=== PATIENT | male | born 1940 | race Caucasian/White ===

== ENCOUNTER 2016-04-12 10:58 | Observation (INO) | payer MEDICARE, BC ==
[2016-04-12] MEDS ORDERED: HOME MEDICATION LIST NEEDED 1 EA EACH MC ONE (11:08)
[2016-04-12] MEDS ORDERED: ACETAMINOPHEN 325 MG TABLET PO PRN (11:08)
[2016-04-12] MEDS ORDERED: DEXTROSE 50% WATER 25 GM/50 ML SYR IV PRN (11:12)
[2016-04-12] MEDS ORDERED: O2 HUMIDIFIER 650 ML BOTTLE INHALATION ONE (11:38)
[2016-04-12] MEDS: INSULIN LISPRO 100 UNIT/ML ML SUBCUT SCH ×3 (11:55→21:03)
[2016-04-12] MEDS ORDERED: NORMAL SALINE 1,000 ML IV SCH (12:00)
[2016-04-12] MEDS ORDERED: GUAIFENESIN ER 600 MG TABLET PO SCH (12:00)
[2016-04-12 12:27] LABS: BLOOD UREA NITROGEN 29 mg/dL (9-20); CALCIUM 8.1 mg/dL (8.4-10.2); CHLORIDE 105 mmol/L (98-107); CREATININE 1.2 mg/dL (0.7-1.3); EST GLOMERULAR FILTRATION RATE > 60 mL/min; GLUCOSE 134 mg/dL (70-100); POTASSIUM 4.6 mmol/L (3.5-5.1); SODIUM 134 mmol/L (137-145)
--- NOTE | 2016-04-12 12:32 | RADIOLOGY REPORT ---
HISTORY: Cough. COMPARISON: None available. FINDINGS: 2 views of the chest obtained. There is a small vague opacity in the mid right lung posteriorly that may represent confluence of sha dows. Otherwise the lungs are clear. No effusion or pneumothorax. Cardiac silhouette is within normal limits for size and the trachea is midline. No acute bony injury. IMPRESSION: 1. Small vague opacity mid right lung. Recommend follow-up PA and lateral chest films in 4-6 weeks. Final Electronic Signature: This report was electronically signed by Jorge Reynoso MD on 04/12/2016 12:3 0 PM. sross /
[2016-04-12 12:35] LABS: HEMATOCRIT 26.6 % (42.0-54.0); HEMOGLOBIN 8.9 g/dL (14.0-18.0); MEAN CELL VOLUME 96.6 fL (80.0-100.0); MEAN CORPUS. HGB CONCENTRATION 33.5 g/dL (32.0-36.0); MEAN CORPUSCULAR HEMOGLOBIN 32.3 pg (29.0-35.0); MEAN PLATELET VOLUME 7.4 fL (7.4-10.4); PLATELET COUNT 297 X 10^3uL (130-440); RED BLOOD COUNT 2.76 X 10^6uL (4.20-6.10); RED CELL DISTRIBUTION WIDTH 14.9 % (11.5-14.5); WHITE BLOOD COUNT 5.3 X 10^3uL (3.9-10.7)
[2016-04-12] MEDS: AZITHROMYCIN 250 MG TABLET PO ONE ×2 (12:49→13:55)
[2016-04-12] MEDS: CEFTRIAXONE SODIUM 1,000 MG in NORMAL SALINE MINI-BAG+ 100 ML IV SCH ×2 (12:50→21:39)
[2016-04-12 12:56] LABS: BAND% (Manual) 26 % (0.0-1.0); EOSINOPHIL % (Manual) 8 % (0.0-6.0); LYMPHOCYTE % (Manual) 5 % (20.0-40.0); MONOCYTE % (Manual) 7 % (2.0-10.0); NEUTROPHIL % (Manual) 54 % (54.0-75.0); PLATELET ESTIMATE ADEQUATE
--- NOTE | 2016-04-12 15:05 | HISTORY & PHYSICAL ---
CHIEF COMPLAINT: Cough and fevers. HISTORY OF PRESENT ILLNESS: The patient is a 76-year-old male. Underlying diabetes. Recently diagnosed with multiple myeloma, and he has been started on Revlimid therapy for this. He was doing fairly well clinically until about 2 days ago at which point he started to develop cough. Yesterday, illness became much more severe with more severe cough with sputum production. In association with this, he began to have fevers and chills with a documented temperature to 100 with a fair amount of shivering and shaking throughout the course of the day. In association with this, he has had a little bit of lightheadedness but no focal neurologic changes. No significant headache. He has had significant myalgias which are diffuse. He denies any chest pain or palpitations. No orthopnea, PND, lower extremity edema. Appetite has been poor but he denies any abdominal pain, nausea, vomiting. No diarrhea or constipation. He does have cough as above which is productive of sputum. No wheezing or shortness of breath. With regard to his diabetes, he has not been checking his fingerstick blood sugars. His appetite has been poor and his oral intake has been low. He has generalized weakness. He was seen by me this morning in the clinic urgently. He as found to be hemodynamically stable with borderline hypoxemia. No clear evidence of a focal process on his chest examination. However, considering his productive cough, fevers, rigors, hypoxemia, immunocompromised, he requires more aggressive treatment with hospitalization and he is willing to be admitted for such. PAST MEDICAL HISTORY 1. Actinic keratoses. 2. Aortic insufficiency which is mild, diagnosed in 2004. 3. History of BPV. 4. Bradycardia which is asymptomatic. 5. Chronic kidney disease stage 3. 6. Colon polyps. 7. Diabetes mellitus type 2 with underlying renal disease and peripheral vascular disease. 8. Erectile dysfunction. 9. Hemorrhoids. 10. Hypercholesterolemia. 11. Hyperkalemia in the setting of renal insufficiency and diabetes. 12. Hypertension. 13. Mild mitral regurgitation. 14. Multiple myeloma not yet having achieved remission and diagnosed in March of 2016. 15. Onychomycosis. 16. Perennial allergic rhinitis. 17. History of posterior vitreous attachment bilaterally. 18. Elevated PSA. 19. Sciatica. 20. Seborrheic keratosis. 21. Tinea pedis. PAST SURGICAL HISTORY 1.Cataract surgery in 2015. 2. Tonsillectomy as a child. ALLERGIES: Tetanus vaccine resulting in a local reaction. MEDICATIONS Acetaminophen 500 mg one to two p.o. t.i.d. p.r.n. Allopurinol 300 mg p.o. daily for 14 days. Aspirin 81 mg p.o. daily. Atorvastatin 10 mg p.o. at bedtime. Dexamethasone 20 mg weekly in association with his Revlimid. Lisinopril 20 mg p.o. daily. Metformin 1000 mg p.o. b.i.d. Nasacort 2 sprays to each side daily. Revlimid 25 mg p.o. daily for 21 days with a 7-day break. Vitamin C 1000 mg daily. Zyrtec 10 mg p.o. daily. SOCIAL HISTORY: Rare alcohol. No tobacco. 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 FAMILY HISTORY: Noncontributory. REVIEW OF SYSTEMS: Pertinent positives and negatives as above. Remainder are negative. PHYSICAL EXAMINATION VITAL SIGNS: Show a temperature of 98.3, with a blood pressure 140/56, pulse 84 , respirations 20. He is 89% on room air. His weight is 183 pounds. GENERAL: A well-developed male. Appears tired but in no significant respiratory distress. No use of accessory muscles. Shivering. Alert and interactive and appropriate. HEENT: Normocephalic/atraumatic. Sinuses are nontender. Pupils are equal, round and reactive to light. Extraocular muscles appear intact. Full range of motion. Oropharynx shows dry mucous membranes but is otherwise clear. NECK: Supple without lymphadenopathy or masses. No thyromegaly or nodules. CHEST: Mildly decreased breath sounds throughout. I do not hear any rales, rhonchi or wheezes. CARDIAC: Regular rate and rhythm, normal S1, S2. There is a soft 1/6 holosystolic murmur best heart at the apex. Could not feel a PMI. Has no JVD at 90 degrees. No lower extremity edema. ABDOMEN: Positive bowel sounds. Soft, nontender, nondistended. No hepatosplenomegaly. No masses. No rebound or rigidity. BACK: No costovertebral angle tenderness or spinous process tenderness. EXTREMITIES: No cyanosis or clubbing. SKIN: No rashes. NEUROLOGIC: The patient alert and oriented times 3. Light touch was not retested. He is moving all 4 extremities equally. Moving carefully with his gait. LABORATORY STUDIES: Ordered and pending include blood cultures, influenza swab , CBC, CMP, lactate, urinalysis. CHEST X-RAY: Ordered and pending. ASSESSMENT AND PLAN 1. Pneumonia: Bacterial, complicated. At this point and time, the patient is presenting with a clinical scenario which is consistent with pneumonia in an immunocompromised state. Further testing is ordered and pending as above. At this point, considering he is immunocompromised, shaking which is suggestive of bacteremia, and borderline hypoxemia, I believe he requires hospitalization and more aggressive management. That being said, he does not appear septic at this time, and I believe we can manage him here at this facility. Testing has been ordered as above. Will initiate treatment with ceftriaxone initially at 1 g q.12h considering fears of bacteremia. Concurrent azithromycin. Depending on influenza testing, may need Tamiflu but will hold off for now. IV fluid resuscitation. I do not hear any evidence of airway inflammation/wheezing. Based upon this, no indication for additional steroids and will hold off on bronchodilators unless he becomes more symptomatic from a shortness of breath or wheezing standpoint. At this point in time, I will plan to hold his Revlimid and his steroids temporarily until infection is better managed. 2. Multiple myeloma: New diagnosis. Now with immunocompromised as above. 3. Diabetes mellitus type 2: Depending upon his labs, will plan to continue metformin. Will follow fingerstick blood sugars. Holding off on further steroids as above. 4. Hypertension: Blood pressure appears to be reasonably controlled. Will continue his usual medications. 5. Hypercholesterolemia: Again, will continue on his usual medications. 6. Core status: The patient is full core/full tube. 7. DVT prophylaxis: Lovenox. 8. Vaccine status: The patients most recent flu vaccine was in 11/2015. Most recent pneumonia vaccine was Prevnar in 02/2014. He is not up-to-date on tetanus vaccine based upon severe prior reaction. [facility]
[2016-04-12] MEDS: FLUTICASONE NASAL 120 SPRAY BTL NASAL SCH ×2 (19:14→19:17)
[2016-04-12] MEDS: FEXOFENADINE HCL 180 MG TABLET PO SCH (19:14)
[2016-04-12] MEDS: ATORVASTATIN CALCIUM 10 MG TABLET PO SCH (20:40)
[2016-04-12] MEDS: metFORMIN 500 MG TABLET PO SCH (20:41)
[2016-04-12] MEDS: GUAIFENESIN ER 600 MG TABLET PO SCH (21:39)
[2016-04-13 07:08] LABS: BASOPHILS 0.6 % (0.0-2.0); EOSINOPHILS# 0.5 X 10^3uL (0.0-0.4); HEMATOCRIT 25.7 % (42.0-54.0); HEMOGLOBIN 8.4 g/dL (14.0-18.0); LYMPHOCYTES 14.2 % (20.0-40.0); LYMPHOCYTES# 0.6 X 10^3uL (0.8-3.8); MEAN CELL VOLUME 97.3 fL (80.0-100.0); MEAN CORPUS. HGB CONCENTRATION 32.7 g/dL (32.0-36.0); MEAN CORPUSCULAR HEMOGLOBIN 31.8 pg (29.0-35.0); MEAN PLATELET VOLUME 7.2 fL (7.4-10.4); MONOCYTES 9.1 % (2.0-10.0); MONOCYTES# 0.4 X 10^3uL (0.2-1.0); NEUTROPHILS 65.1 % (54.0-75.0); NEUTROPHILS# 3.1 X 10^3uL (2.6-6.7); PLATELET COUNT 253 X 10^3uL (130-440); RED BLOOD COUNT 2.64 X 10^6uL (4.20-6.10); RED CELL DISTRIBUTION WIDTH 14.8 % (11.5-14.5); WHITE BLOOD COUNT 4.6 X 10^3uL (3.9-10.7)
[2016-04-13 07:18] LABS: BLOOD UREA NITROGEN 26 mg/dL (9-20); CALCIUM 7.8 mg/dL (8.4-10.2); CHLORIDE 107 mmol/L (98-107); CREATININE 1.2 mg/dL (0.7-1.3); EST GLOMERULAR FILTRATION RATE > 60 mL/min; GLUCOSE 98 mg/dL (70-100); POTASSIUM 4.8 mmol/L (3.5-5.1); SODIUM 137 mmol/L (137-145)
--- NOTE | 2016-04-13 08:17 | PROGRESS NOTE: IM APSO ---
Assessment and Plan - Date of Encounter Date of Encounter: 04/13/16 (1) Pneumonia Status: Acute Assessment and plan: Gram stain is showing only mixed respiratory abdifatah. Chest xray shows a faint opacity right mid lung, and presentation is consistent with diagnosis. Patient seems to have responded well to medications for community acquired pneumonia, so will continue same while awaiting sputum culture. Current Visit: Yes (2) Anemia Status: Acute Assessment and plan: Patient has underlying multiple myeloma, not yet in remission, undergoing treatment. Hemoglobin is slightly lower today, likely the result of blood draws. He does not feel more short of breath, so will continue to observe for now. Current Visit: Yes (3) Diabetes Status: Acute Assessment and plan: Blood sugars are remaining stable, this morning at 98. Continue current interventions. Current Visit: Yes (4) Hypertension Status: Acute Assessment and plan: Blood pressure remains controlled, continue current interventions. Current Visit: Yes - Time Spent With Patient Total time spent with greater than 50% in coordination of care (as documented) at patient's floor/unit and/or counseling patient: IM: PN Subjective Interval history: Feeling much better, and has not had any shaking chills. Slight cough, no increase in shortness of breath. No diarrhea. Has been afebrile overnight. General: fatigue, no fever, no chills HEENT: no headache Cardiovascular: no chest pain Respiratory: cough, sputum (yellow mucus), SOB, no wheeze Gastrointestinal: no abdominal pain, no diarrhea Genitourinary: no dysuria Musculoskeletal: no pain, no swelling Integumentary: no rashes Neurological: no headache IM: PN Objective Exam - I&O/Vital Signs I&O: Intake & Output 04/12/16 04/13/16 04/13/16 21:59 05:59 13:59 Intake Total 650 2100 Output Total 200 850 Balance 450 1250 Weight 86 kg Intake: IV 400 1800 Right Forearm 400 1800 Oral 250 300 Output: Urine 200 850 Other: Urine Appearance Clear Clear Urine Color Light Tania Yellow Voiding Method Urinal Urinal # Voids 3 # Bowel Movements 0 Vital Signs: Last Vital Signs Temp 36.3 C L 04/13/16 06:45 Pulse 71 04/13/16 06:45 Resp 15 04/13/16 06:45 BP 128/61 04/13/16 06:45 Pulse Ox 97 04/13/16 06:45 Oxygen Flow Rate 1 Oxygen Delivery Method Nasal Cannula - Constitutional General appearance: Present: average body habitus - Head Head exam: Present: normal inspection - Eye Eye exam: Present: EOMI. Absent: conjunctival injection Pupils: Present: PERRL - ENT ENT exam: Present: mucous membranes moist - Neck Neck exam: Present: full ROM, normal inspection - Respiratory Respiratory exam: Present: wheezes (right field, mild). Absent: accessory muscle use - Cardiovascular Cardiovascular exam: Present: RRR, systolic murmur (2/6 RUSB, Mid clavicular and heard throughout the precordium. MSC) - GI/Abdominal GI/Abdominal exam: Present: normal bowel sounds, soft. Absent: tenderness - Extremities Exam Extremities exam: Absent: calf tenderness, edema - Psychiatric Psychiatric exam: Present: normal affect - Lab Labs: Laboratory Last Values WBC 4.6 X 10^3uL (3.9-10.7) 04/13/16 06:15 RBC 2.64 X 10^6uL (4.20-6.10) L 04/13/16 06:15 Hgb 8.4 g/dL (14.0-18.0) L 04/13/16 06:15 Hct 25.7 % (42.0-54.0) L 04/13/16 06:15 MCV 97.3 fL (80.0-100.0) 04/13/16 06:15 MCH 31.8 pg (29.0-35.0) 04/13/16 06:15 MCHC 32.7 g/dL (32.0-36.0) 04/13/16 06:15 RDW 14.8 % (11.5-14.5) H 04/13/16 06:15 Plt Count 253 X 10^3uL (130-440) 04/13/16 06:15 MPV 7.2 fL (7.4-10.4) L 04/13/16 06:15 Total Counted 100 04/12/16 11:08 Neutrophils % 65.1 % (54.0-75.0) 04/13/16 06:15 Neutrophils % (Manual) 54 % (54.0-75.0) 04/12/16 11:08 Band Neuts % (Manual) 26 % (0.0-1.0) H 04/12/16 11:08 Lymphocytes % 14.2 % (20.0-40.0) L 04/13/16 06:15 Lymphocytes % (Manual) 5 % (20.0-40.0) L 04/12/16 11:08 Monocytes % (Manual) 7 % (2.0-10.0) 04/12/16 11:08 Eosinophils % 11.0 % (0.0-6.0) H 04/13/16 06:15 Eosinophils % (Manual) 8 % (0.0-6.0) H 04/12/16 11:08 Basophils % 0.6 % (0.0-2.0) 04/13/16 06:15 Neutrophils # 3.1 X 10^3uL (2.6-6.7) 04/13/16 06:15 Lymphocytes # 0.6 X 10^3uL (0.8-3.8) L 04/13/16 06:15 Monocytes 9.1 % (2.0-10.0) 04/13/16 06:15 Monocytes # 0.4 X 10^3uL (0.2-1.0) 04/13/16 06:15 Eosinophils # 0.5 X 10^3uL (0.0-0.4) H 04/13/16 06:15 Basophils # 0.0 X 10^3uL (0.0-0.1) 04/13/16 06:15 Platelet Estimate Adequate 04/12/16 11:08 Polychromasia 10-19% of cells 04/12/16 11:08 Hypochromic-Microcytic 10-19% of cells 04/12/16 11:08 Anisocytosis 20-39% of cells 04/12/16 11:08 Macrocytosis 20-39% of cells 04/12/16 11:08 Sodium 137 mmol/L (137-145) 04/13/16 06:15 Potassium 4.8 mmol/L (3.5-5.1) 04/13/16 06:15 Chloride 107 mmol/L (98-107) 04/13/16 06:15 Carbon Dioxide 24 mmol/L (22-30) 04/13/16 06:15 BUN 26 mg/dL (9-20) H 04/13/16 06:15 Creatinine 1.2 mg/dL (0.7-1.3) 04/13/16 06:15 GFR Calculation > 60 mL/min 04/13/16 06:15 Glucose 98 mg/dL (70-100) 04/13/16 06:15 Calcium 7.8 mg/dL (8.4-10.2) L 04/13/16 06:15 Quality Questions - VTE Prophylaxis Assessment VTE Present on Admission?: No Patient at risk for venous thromboembolism?: Yes VTE Risk Level: High Risk VTE Medical Contraindication: N/A-VTE Prophylaxis ordered (1) Pneumonia Qualifiers: Pneumonia type: due to unspecified organism Laterality: right Lung location : middle lobe of lung Qualified Code(s): J18.1 - Lobar pneumonia, unspecified organism (2) Anemia Qualifiers: Anemia type: bone marrow failure Bone marrow failure anemia type: other bone marrow failure Qualified Code(s): D61.89 - Other specified aplastic anemias and other bone marrow failure syndromes (3) Diabetes Qualifiers: Diabetes mellitus type: type 2 Diabetes mellitus complication status: with kidney complications Diabetes mellitus complication detail: with chronic kidney disease Chronic kidney disease stage: stage 3 (moderate) (4) Hypertension Qualifiers: Hypertension type: essential hypertension Qualified Code(s): I10 - Essential (primary) hypertension
[2016-04-13] MEDS: INSULIN LISPRO 100 UNIT/ML ML SUBCUT SCH ×3 (08:29→21:07)
[2016-04-13] MEDS: ENOXAPARIN SODIUM 40 MG/0.4 ML SYR SUBCUT SCH (08:38)
[2016-04-13] MEDS: CEFTRIAXONE SODIUM 1,000 MG in NORMAL SALINE MINI-BAG+ 100 ML IV SCH ×2 (08:38→21:08)
[2016-04-13] MEDS: ALLOPURINOL 300 MG TABLET PO SCH ×2 (08:39→09:05)
[2016-04-13] MEDS: GUAIFENESIN ER 600 MG TABLET PO SCH ×2 (08:39→21:07)
[2016-04-13] MEDS: FEXOFENADINE HCL 180 MG TABLET PO SCH (08:41)
[2016-04-13] MEDS: metFORMIN 500 MG TABLET PO SCH ×2 (08:41→21:08)
[2016-04-13] MEDS: FLUTICASONE NASAL 120 SPRAY BTL NASAL SCH (08:42)
[2016-04-13] MEDS: AZITHROMYCIN 250 MG TABLET PO SCH (08:42)
[2016-04-13] MEDS: LISINOPRIL 20 MG TABLET PO SCH (08:42)
[2016-04-13] MEDS ORDERED: LISINOPRIL 20 MG TABLET PO SCH (09:00)
[2016-04-13] MEDS ORDERED: NORMAL SALINE MINI-BAG+ 100 ML IV ONE (16:27)
[2016-04-13] MEDS: ATORVASTATIN CALCIUM 10 MG TABLET PO SCH (21:08)
[2016-04-13] MEDS ORDERED: NORMAL SALINE 100 ML IV ONE (21:28)
[2016-04-14 06:36] LABS: BASOPHILS 0.8 % (0.0-2.0); EOSINOPHILS 10.1 % (0.0-6.0); EOSINOPHILS# 0.5 X 10^3uL (0.0-0.4); HEMATOCRIT 27.3 % (42.0-54.0); HEMOGLOBIN 8.9 g/dL (14.0-18.0); LYMPHOCYTES# 0.7 X 10^3uL (0.8-3.8); MEAN CELL VOLUME 97.3 fL (80.0-100.0); MEAN CORPUS. HGB CONCENTRATION 32.7 g/dL (32.0-36.0); MEAN CORPUSCULAR HEMOGLOBIN 31.9 pg (29.0-35.0); MEAN PLATELET VOLUME 7.2 fL (7.4-10.4); MONOCYTES# 0.4 X 10^3uL (0.2-1.0); NEUTROPHILS 65.1 % (54.0-75.0); NEUTROPHILS# 3.4 X 10^3uL (2.6-6.7); PLATELET COUNT 259 X 10^3uL (130-440); RED BLOOD COUNT 2.81 X 10^6uL (4.20-6.10); RED CELL DISTRIBUTION WIDTH 14.7 % (11.5-14.5)
[2016-04-14 06:43] LABS: BLOOD UREA NITROGEN 23 mg/dL (9-20); CALCIUM 7.8 mg/dL (8.4-10.2); CHLORIDE 108 mmol/L (98-107); CREATININE 1.2 mg/dL (0.7-1.3); EST GLOMERULAR FILTRATION RATE > 60 mL/min; GLUCOSE 104 mg/dL (70-100); POTASSIUM 4.6 mmol/L (3.5-5.1); SODIUM 136 mmol/L (137-145)
[2016-04-14] MEDS: INSULIN LISPRO 100 UNIT/ML ML SUBCUT SCH (07:31)
[2016-04-14 07:56] VITALS: BP 124/59; PULSE 72; TEMP 97.7; O2SAT 94
[2016-04-14] MEDS ORDERED: CEFTRIAXONE SODIUM 1,000 MG/10 ML VIAL IV SCH (09:00)
[2016-04-14] MEDS ORDERED: CEFTRIAXONE SODIUM 1,000 MG in NORMAL SALINE MINI-BAG+ 100 ML IV SCH (09:00)
--- NOTE | 2016-04-14 09:31 | DC SUMMARY: IM Note ---
Discharge Summary: IM/Peds Provider: Date of Admission: 04/12/16 Admitting Provider: MIGUEL A WEBER MD Attending Provider: MIGUEL A WEBER MD Discharging Provider: ABRIL BURNHAM MD Primary Care Provider: Discharge Date: 04/14/16 - Diagnosis (1) Pneumonia Status: Acute Qualifiers: Pneumonia type: due to unspecified organism Laterality: right Lung location: middle lobe of lung Qualified Code(s): J18.1 - Lobar pneumonia , unspecified organism (2) Anemia Status: Acute Qualifiers: Anemia type: bone marrow failure Bone marrow failure anemia type: other bone marrow failure Qualified Code(s): D61.89 - Other specified aplastic anemias and other bone marrow failure syndromes (3) Diabetes Status: Acute Qualifiers: Diabetes mellitus type: type 2 Diabetes mellitus complication status: with kidney complications Diabetes mellitus complication detail: with chronic kidney disease Chronic kidney disease stage: stage 3 (moderate) (4) Hypertension Status: Acute Qualifiers: Hypertension type: essential hypertension Qualified Code(s): I10 - Essential (primary) hypertension Hospital Course: Patient was admitted with rigors and upper respiratory symptoms. He is undergoing treatment for Multiple Myeloma and is felt to be immunocompromised. He was placed on Rocephin and Azithromycin, and has made a very rapid recovery, so that he is feeling "marvelous" at the time of discharge. Blood cultures and sputum cultures are negative. Chest xray shows a potential hazy infiltrate in the right mid lung. Patient will be discharged on Amoxicillin and Azithromycin per guidelines for CAP. Patient has anemia related to his Multiple Myeloma, which remained stable throughout his stay. He also has diabetes, and that remained under good control , as did his hypertension. - Time Spent with Patient Total time spent providing and/or coordinating discharge services: Time with patient DS: Greater than 30 minutes Discharge - Patient/Caregiver Discharge Instructions Activity Level: As tolerated Diet: ADA Follow up: MIGUEL A WEBER MD [Primary Care Provider] - 7 Days Overall discharge status: patient is progressing back to baseline Home Medications: Amoxicillin 500 mg PO TID #18 cap Guaifenesin ER [Mucinex*] 1,200 mg PO BID #20 tablet Azithromycin [Zithromax*] 250 mg PO DAILY #6 tablet Disposition: HOME, SELF-CARE 1. Medical reason for no anticoagulation order on D/C?: Treatment not indicated 2. Medical reason for no anticoag overlap on D/C?: Treatment not indicated Discharge Summary Data - Medication History Medication History: Home Medications Acetaminophen [Tylenol X-Strength] 500 - 1,000 mg PO PRN PRN 02/15/14 Atorvastatin Calcium [Lipitor*] 10 mg PO DAILY 02/15/14 Lisinopril [Prinivil*] 20 mg PO DAILY 02/15/14 Metformin HCl [Glucophage] 1,000 mg PO BID 02/15/14 aspirin EC [Aspirin EC*] 81 mg PO DAILY 02/15/14 Allopurinol [Zyloprim] 300 mg PO DAILY 04/12/16 Ascorbic Acid [Vitamin C] 1,000 mg PO PRN PRN 04/12/16 Cetirizine HCl [Zyrtec] 10 mg PO DAILY 04/12/16 Dexamethasone [Decadron*] 20 mg PO WEEKLY 04/12/16 Lenalidomide [Revlimid] 25 mg PO DIRECTED 04/12/16 Triamcinolone Acetonide [Nasacort Aq] 2 spr NASAL DAILY 04/12/16 Inpatient Medications 04/12/16 11:08 Acetaminophen [Tylenol] 650 mg PO Q6H PRN 04/12/16 11:12 Dextrose 50% Water [D50%] 50 gm IV PRN PRN 04/12/16 11:30 Insulin Lispro [HumaLOG] See Protocol SUBCUT ACHS 04/12/16 17:30 Fexofenadine HCl [Ave] 180 mg PO DAILY Fluticasone Nasal [Flonase Nasal [place]] 2 spray NASAL DAILY 04/12/16 21:00 Atorvastatin Calcium [Lipitor] 10 mg PO HS Guaifenesin ER [Mucinex] 1,200 mg PO BID metFORMIN [Glucophage] 1,000 mg PO BID 04/13/16 09:00 Allopurinol [Zyloprim] 300 mg PO DAILY Azithromycin [Zithromax] 250 mg PO DAILY Enoxaparin Sodium [Lovenox] 40 mg SUBCUT DAILY Lisinopril [Prinivil] 20 mg PO DAILY aspirin EC [Ecotrin 81 mg] 81 mg PO DAILY 04/14/16 09:00 Ceftriaxone Sodium [Rocephin] 1,000 mg Normal Saline Mini-Bag+ [Sodium Chloride 100 ml Mini-Bag Plus] 100 ml IV Q24H Procedures and tests throughout hospitalization: Completed Lab Orders 04/12/16 11:08 BASIC METABOLIC PANEL [CHEM] Urgent CBC W/ MANUAL DIFFERENTIAL [HEM] Urgent 04/13/16 06:15 BASIC METABOLIC PANEL [CHEM] AMDRAW CBC AUTO DIF, MDIF/RMOR IF IND [HEM] AMDRAW 04/14/16 06:05 BASIC METABOLIC PANEL [CHEM] AMDRAW CBC AUTO DIF, MDIF/RMOR IF IND [HEM] AMDRAW Completed Imaging Orders 04/12/16 11:15 CXR 2V [id number] [RAD] ON ADMIT Pending Orders 04/12/16 11:08 Admit: Inpatient Routine Activity: Bathroom Privileges . Assess pulse oximetry CONTINUOUS Humidify Oxygen CONTINUOUS Intake and Output QSHIFT I&O Obtain weight 0600 Resuscitation Status Routine Teach: Deep Breathing & Coughi . Titrate Oxygen TITRATE TO >90% Vital Signs ROUTINE VITALS (Q4H) BLOOD CULTURE [BC] Urgent Acetaminophen [Tylenol] 650 mg PO Q6H PRN 04/12/16 11:09 Incentive Spirometry Q1H 04/12/16 11:11 VTE Prophylaxis Scoring/ Ordering Routine 04/12/16 11:12 Finger Stick Blood Sugar ACHS FINGER STICK Hypoglycemia treatment... PER PROTOCOL Dextrose 50% Water [D50%] 50 gm IV PRN PRN 04/12/16 11:30 SPUTUM CULTURE AND GRAM STAIN [RM] Urgent Insulin Lispro [HumaLOG] See Protocol SUBCUT ACHS 04/12/16 17:30 Fexofenadine HCl [Ave] 180 mg PO DAILY Fluticasone Nasal [Flonase Nasal [place]] 2 spray NASAL DAILY 04/12/16 21:00 Atorvastatin Calcium [Lipitor] 10 mg PO HS Guaifenesin ER [Mucinex] 1,200 mg PO BID metFORMIN [Glucophage] 1,000 mg PO BID 04/12/16 Breakfast Diabetic [DIET] 04/13/16 09:00 Allopurinol [Zyloprim] 300 mg PO DAILY Azithromycin [Zithromax] 250 mg PO DAILY Enoxaparin Sodium [Lovenox] 40 mg SUBCUT DAILY Lisinopril [Prinivil] 20 mg PO DAILY aspirin EC [Ecotrin 81 mg] 81 mg PO DAILY 04/14/16 09:00 Ceftriaxone Sodium [Rocephin] 1,000 mg Normal Saline Mini-Bag+ [Sodium Chloride 100 ml Mini-Bag Plus] 100 ml IV Q24H 04/15/16 05:00 PLATELET COUNT [HEM] LABQ2D Labs on day of discharge: Labs from last 24 hours 04/14/16 06:05 WBC 5.0 RBC 2.81 L Hgb 8.9 L Hct 27.3 L MCV 97.3 MCH 31.9 MCHC 32.7 RDW 14.7 H Plt Count 259 MPV 7.2 L Neutrophils % 65.1 Lymphocytes % 15.0 L Eosinophils % 10.1 H Basophils % 0.8 Neutrophils # 3.4 Lymphocytes # 0.7 L Monocytes 9.0 Monocytes # 0.4 Eosinophils # 0.5 H Basophils # 0.0 Sodium 136 L Potassium 4.6 Chloride 108 H Carbon Dioxide 21 L BUN 23 H Creatinine 1.2 GFR Calculation > 60 Glucose 104 H Calcium 7.8 L Preliminary micro results at discharge 04/12/16 11:30 Sputum Culture - Preliminary Sputum 04/12/16 11:08 Blood Culture - Preliminary Blood NO GROWTH TO DATE 04/12/16 12:00 Blood Culture - Preliminary Blood NO GROWTH TO DATE IM: Discharge Physical Exam - I&O/Vital Signs I&O: Intake & Output 04/13/16 04/14/16 04/14/16 21:59 05:59 13:59 Intake Total 300 510 Output Total 400 Balance -100 510 Intake: IV 10 Right Forearm 10 Oral 300 500 Output: Urine 400 Other: Voiding Method Toilet # Voids 3 Vital Signs: Last Vital Signs Temp 36.5 C 04/14/16 07:00 Pulse 72 04/14/16 07:00 Resp 16 04/14/16 07:00 BP 124/59 04/14/16 07:00 Pulse Ox 94 04/14/16 07:00 Oxygen Flow Rate 1 Oxygen Delivery Method Room Air - Constitutional General appearance: Present: average body habitus - Head Head exam: Present: normal inspection - Eye Eye exam: Present: EOMI. Absent: conjunctival injection Pupils: Present: PERRL - ENT ENT exam: Present: mucous membranes moist - Neck Neck exam: Present: full ROM, normal inspection - Respiratory Respiratory exam: Present: CTAB. Absent: accessory muscle use, wheezes - Cardiovascular Cardiovascular exam: Present: RRR, systolic murmur (2/6 RUSB, Mid clavicular and heard throughout the precordium. MSC) - GI/Abdominal GI/Abdominal exam: Present: normal bowel sounds, soft. Absent: tenderness - Extremities Exam Extremities exam: Absent: calf tenderness, edema - Psychiatric Psychiatric exam: Present: normal affect
[2016-04-14] MEDS: GUAIFENESIN ER 600 MG TABLET PO SCH (09:34)
[2016-04-14] MEDS: FEXOFENADINE HCL 180 MG TABLET PO SCH (09:34)
[2016-04-14] MEDS: LISINOPRIL 20 MG TABLET PO SCH (09:35)
[2016-04-14] MEDS: ENOXAPARIN SODIUM 40 MG/0.4 ML SYR SUBCUT SCH (09:35)
[2016-04-14] MEDS: FLUTICASONE NASAL 120 SPRAY BTL NASAL SCH (09:35)
[2016-04-14] MEDS: metFORMIN 500 MG TABLET PO SCH (09:35)
[2016-04-14] MEDS: ALLOPURINOL 300 MG TABLET PO SCH (09:36)
[2016-04-14] MEDS: AZITHROMYCIN 250 MG TABLET PO SCH (09:36)
[2016-04-14 10:52] VITALS: RESP 18
== END 2016-04-14 09:40 | disposition home or self-care (01) ==
LOC: UNDOADMOB 11:16 → IN 11:16
PROVIDERS: ADMIT Internal Medicine; ATTEND Internal Medicine
DX: J15.9 Unspecified bacterial pneumonia (principal); N18.3 Chronic kidney disease, stage 3 (moderate); C90.00 Multiple myeloma not having achieved remission; I12.9 Hypertensive chronic kidney disease with stage 1 through stage 4 chronic kidney disease, or unspecified chronic kidney disease; E11.22 Type 2 diabetes mellitus with diabetic chronic kidney disease; D61.89 Other specified aplastic anemias and other bone marrow failure syndromes; E87.5 Hyperkalemia; E78.00 Pure hypercholesterolemia, unspecified; I08.0 Rheumatic disorders of both mitral and aortic valves; B35.3 Tinea pedis; Z86.010 Personal history of colon polyps; Z79.82 Long term (current) use of aspirin; Z79.899 Other long term (current) drug therapy
CPT/HCPCS: 36415; 71020; 80048; 85007; 85025; 85027; 87040; 87070; 87205; E0555; G0378; G0379; J0696; J1650; J1815; J7030; Q0144

== ENCOUNTER 2016-06-02 11:23 | Emergency (ER) | payer MEDICARE, BC ==
[2016-06-02 11:35] LABS: BASOPHILS 0.7 % (0.0-2.0); EOSINOPHILS# 0.5 X 10^3uL (0.0-0.4); LYMPHOCYTES 13.4 % (20.0-40.0); LYMPHOCYTES# 0.8 X 10^3uL (0.8-3.8); MEAN CELL VOLUME 94.1 fL (80.0-100.0); MEAN CORPUS. HGB CONCENTRATION 33.3 g/dL (32.0-36.0); MEAN CORPUSCULAR HEMOGLOBIN 31.4 pg (29.0-35.0); MEAN PLATELET VOLUME 7.1 fL (7.4-10.4); MONOCYTES 8.4 % (2.0-10.0); MONOCYTES# 0.5 X 10^3uL (0.2-1.0); NEUTROPHILS# 4.4 X 10^3uL (2.6-6.7); RED BLOOD COUNT 3.06 X 10^6uL (4.20-6.10); RED CELL DISTRIBUTION WIDTH 15.9 % (11.5-14.5); WHITE BLOOD COUNT 6.2 X 10^3uL (3.9-10.7)
[2016-06-02 11:39] LABS: HEMATOCRIT 28.8 % (42.0-54.0); HEMOGLOBIN 9.6 g/dL (14.0-18.0)
[2016-06-02 11:40] LABS: EOSINOPHILS 8.5 % (0.0-6.0)
[2016-06-02 11:48] LABS: CREATININE 1.7 mg/dL (0.7-1.3); POTASSIUM 5.7 mmol/L (3.5-5.1)
[2016-06-02 11:49] LABS: CALCIUM 7.4 mg/dL (8.4-10.2)
[2016-06-02] MEDS ORDERED: DEXTROSE 50% WATER 50 ML IV ONE (12:24)
[2016-06-02] MEDS ORDERED: INSULIN REGULAR HUMAN 100 UNITS/ML ML ONE (12:24)
[2016-06-02] MEDS ORDERED: NORMAL SALINE 500 ML IV ONE ×2 (12:24→14:19)
[2016-06-02] MEDS ORDERED: NORMAL SALINE 1,000 ML IV ONE (12:25)
--- NOTE | 2016-06-02 15:20 | ER PHYSICIAN DOCUMENTATION ---
Physician Documentation [facility] Name:Michael Lorenzo Age:76 yrs Sex:Male :1940 Arrival Date:06/02/2016 Time:11:23 Bed4 Private MD:Madi Huizar ED, [place] Disposition: 06/02/16 12:17 Discharged to Home/Self Care. Impression: Acute Renal/Kidney Failure, Nontraumatic, Hyperkalemia, Anemia. - Condition is Good. - Discharge Instructions: HYPERKALEMIA, Anemia - Hematocrit. - Medical Reconciliation form form. - Follow up: Madi Huizar MD; When: 1 - 2 days; Reason: Recheck today's complaints, Continuance of care. - Problem is an ongoing problem. - Symptoms have improved. HPI: 06/02 12:11 This 76 yrs old Male presents to ER via EMS with complaints of General sc Weakness. 12:11 fatigue, general weakness, with MM and chemo daily and anemia. Onset: The sc symptom(s)/episode began/occurred gradually, and became worse today. Severity of symptoms: At their worst the symptoms were moderate. The patient has experienced similar episodes in the past, a few times. The patient has been recently seen by a physician: the patient's primary care provider, Dr. Huizar and oncologist last week. Historical: - Allergies: TETANUS TOXOID; - Home Meds: 1. atorvastatin oral 2. Dexamethasone Oral 3. Metformin Oral 4. lisinopril 2.5 mg oral tab 5. Aspirin Oral 6. Relafen Oral 7. Magnesium Oxide Oral - PMHx: multiple myeloma; Diabetes - NIDDM; - PSHx: Tonsillectomy; - Tetanus: unknown. - Ebola Screening: : No symptoms or risks identified at this time. . - Immunization history: Pneumococcal vaccine is up to date, Flu Vaccine < 1 year. - Social history: Smoking status: Patient states was never smoker of tobacco. Patient/guardian denies using alcohol. ROS: 12:12 Eyes: Negative for injury, pain, redness, and discharge. sc ENT: Negative for injury, pain, and discharge. Neck: Negative for injury, pain, and swelling. Cardiovascular: Negative for chest pain, palpitations, and edema. Respiratory: Negative for shortness of breath, cough, wheezing, and pleuritic chest pain. Back: Negative for injury and pain. Skin: Negative for injury, rash, and discoloration. 12:12 Neuro: Negative for headache, weakness, numbness, tingling, and seizure. sc 12:12 Constitutional: Positive for fatigue, poor PO intake. 12:12 Abdomen/GI: Positive for nausea, Negative for abdominal pain, vomiting, diarrhea, abdominal cramps, dysphagia, hematemesis. Exam: Constitutional: This is a well developed, well nourished patient who is awake, alert, and in no acute distress. Head/Face: Normocephalic, atraumatic. Eyes: Pupils equal round and reactive to light, extra-ocular motions intact. Lids and lashes normal. Conjunctiva and sclera are non-icteric and not injected. Cornea within normal limits. Periorbital areas with no swelling, redness, or edema. ENT: Nares patent. No nasal discharge, no septal abnormalities noted. Tympanic membranes are normal and external auditory canals are clear. Oropharynx with no redness, swelling, or masses, exudates, or evidence of obstruction, uvula midline. Mucous membranes moist. Neck: Trachea midline, no thyromegaly or masses palpated, and no cervical lymphadenopathy. Supple, full range of motion without nuchal rigidity, or vertebral point tenderness. No meningismus. Chest/axilla: Normal chest wall appearance and motion. Nontender with no deformity. No lesions are appreciated. Cardiovascular: Regular rate and rhythm with a normal S1 and S2. No gallops, murmurs, or rubs. Normal PMI, no JVD. No pulse deficits. Respiratory: Lungs have equal breath sounds bilaterally, clear to auscultation and percussion. No rales, rhonchi or wheezes noted. No increased work of breathing, no retractions or nasal flaring. Abdomen/GI: Soft, non-tender, with normal bowel sounds. No distension or tympany. No guarding or rebound. No evidence of tenderness throughout. 12:13 Back: No spinal tenderness. No costovertebral tenderness. Full range of motion. sc 12:13 Constitutional: The patient appears alert, awake. 12:13 Cardiovascular: Rate: normal, Rhythm: regular. 12:13 Respiratory: Respirations: normal, Breath sounds: are normal, clear throughout. 12:13 Abdomen/GI: Inspection: abdomen appears normal, Bowel sounds: normal, Palpation: abdomen is soft and non-tender. 12:13 Skin: Appearance: Color: pale, Turgor: is poor. Vital Signs: 11:36 BP 98 / 40; Pulse 12; Resp 12; Temp 97.5(O); Pulse Ox 99% on R/A; Weight 80.74 kg; nf Height 6 ft. 2 in. (187.96 cm); Pain 0/10; 12:21 BP 102 / 43; Pulse 78; Resp 16; Pulse Ox 95% on R/A; Pain 0/10; nf 13:00 BP 105 / 50; Pulse 78; Resp 12; Pulse Ox 97% on R/A; Pain 0/10; nf 14:12 BP 118 / 47; Pulse 71; Resp 12; Pain 0/10; nf 15:10 BP 115 / 53; Pulse 75; Resp 14; Pulse Ox 96% on R/A; Pain 0/10; nf 11:36 Body Mass Index 22.85 (80.74 kg, 187.96 cm) nf MDM: 11:24 Patient medically screened. ok 12:15 Differential Diagnosis anemia and chemo causing electrolyte imbalances and dehydration, sc although feels much improved needs close follow up for MACHELLE and hyperkalemia. Data reviewed: vital signs, nurses notes, old medical records, lab test result(s), EKG, and as a result, I will continue to observe the patient, administer IV fluids. Counseling: I had a detailed discussion with the patient and/or guardian regarding: the historical points, exam findings, and any diagnostic results supporting the discharge/admit diagnosis, lab results, the need for outpatient follow up, to return to the emergency department if symptoms worsen or persist or if there are any questions or concerns that arise at home. Medication response: The patient's symptoms have improved. 12:52 EKG attached 06/02 11:41 Order name: CBC AUTO DIF, MDIF/RMOR IF IND; Complete Time: 14:07 EDMS 06/02 14:07 Interpretation: Abnormal: HEMATOCRIT 28.8; mild anemia. ok 06/02 11:50 Order name: BASIC METABOLIC PANEL; Complete Time: 11:58 EDMS 06/02 11:57 Interpretation: Abnormal: SODIUM 132; POTASSIUM 5.7; CALCIUM 7.4; hyponatremia, sc elevated bun, prerenal azotemia., elevated Cr. 06/02 12:17 Order name: 12-lead EKG; Complete Time: 12:52 sc Dispensed Medications: 11:42 Drug: NS 0.9% 500 ml; Route: IV; Rate: bolus; Site: right antecubital; nf 12:52 Follow up: IV Status: Completed infusion; IV Intake: 1000ml nf 12:20 Drug: D50W 50 ml; Route: IVP; Site: right antecubital; nf 12:53 Follow up: Response: No adverse reaction nf 12:21 Drug: Insulin Regular Human 5 units; Route: IVP; Site: right antecubital; nf 12:53 Follow up: Response: No adverse reaction nf 12:52 Drug: NS 0.9% 1000 ml; Route: IV; Rate: bolus; Site: right antecubital; nf 13:33 Follow up: IV Status: Completed infusion; IV Intake: 500ml nf 14:10 Drug: NS 0.9% 500 ml; Route: IV; Rate: bolus; Site: right antecubital; nf 14:51 Follow up: IV Status: Completed infusion; IV Intake: 500ml nf Point of Care Testing: Urine Dip: 14:59 pH: 5.0; ; Specific [place]: 1.015; Ketones: Negative; Glucose: Positive; Protein: nf Positive (+); Leukocytes: Negative; Nitrite: Negative ; Blood: Hemolyzed Trace; Bilirubin: Negative ; Urobilinogen: Normal Signatures: Shayy Gonsalves RN RN Rylan Reddy MD MD ok
--- NOTE | 2016-06-02 15:20 | ER NURSING DOCUMENTATION ---
Nurse's Notes [facility] Name:Michael Lorenzo Age:76 yrs Sex:Male :1940 Arrival Date:06/02/2016 Time:11:23 Bed4 Private MD:Madi Huizar Diagnosis:Acute Renal/Kidney Failure, Nontraumatic;Hyperkalemia;Anemia Presentation: 06/02 11:26 Transition of care: patient was not received from another setting of care. nf 11:26 Method Of Arrival: EMS: 410 nf 11:26 Acuity: SUNSHINE 3 nf 11:32 Presenting complaint: Patient states: generalized weakness while at religious, also with nf mild nausea and diaphoresis, presyncopal; to ER by EMS; all symptoms except weakness resolved upon arrival to ER without intervention. Notified ED Physician of patient's arrival and CC Dr. Reddy notified. 11:34 Care prior to arrival: Saline lock initiated. Glucose check. 191 Labs. nf Triage Assessment: 11:46 General: Appears in no apparent distress, well nourished, well groomed, Behavior is nf pleasant. Pain: Denies pain. 11:46 Neuro: Level of Consciousness is awake, alert, Oriented to person, place, time, event, nf Moves all extremities. Speech is normal, Facial symmetry appears normal, Pupils are PERRLA. Cardiovascular: Capillary refill < 3 seconds Rhythm is sinus rhythm. Respiratory: Breath sounds are clear bilaterally. GI: No deficits noted. Reports nausea at religious which has since resolved. : No deficits noted. Reports decreased urinary output, but states he has been drinking his usual amount of fluid. Historical: - Allergies: TETANUS TOXOID; - Home Meds: 1. atorvastatin oral 2. Dexamethasone Oral 3. Metformin Oral 4. lisinopril 2.5 mg oral tab 5. Aspirin Oral 6. Relafen Oral 7. Magnesium Oxide Oral - PMHx: multiple myeloma; Diabetes - NIDDM; - PSHx: Tonsillectomy; - Tetanus: unknown. - Ebola Screening: : No symptoms or risks identified at this time. . - Immunization history: Pneumococcal vaccine is up to date, Flu Vaccine < 1 year. - Social history: Smoking status: Patient states was never smoker of tobacco. Patient/guardian denies using alcohol. Screenin:48 Infectious Disease Risk None. Abuse screen: Denies threats or abuse. Nutritional nf screening: No deficits noted. Assessment: 11:48 See Triage Assessment done by same RN. nf 14:07 Reassessment: patient reports feeling significantly improved. nf Vital Signs: 11:36 BP 98 / 40; Pulse 12; Resp 12; Temp 97.5(O); Pulse Ox 99% on R/A; Weight 80.74 kg; nf Height 6 ft. 2 in. (187.96 cm); Pain 0/10; 12:21 BP 102 / 43; Pulse 78; Resp 16; Pulse Ox 95% on R/A; Pain 0/10; nf 13:00 BP 105 / 50; Pulse 78; Resp 12; Pulse Ox 97% on R/A; Pain 0/10; nf 14:12 BP 118 / 47; Pulse 71; Resp 12; Pain 0/10; nf 15:10 BP 115 / 53; Pulse 75; Resp 14; Pulse Ox 96% on R/A; Pain 0/10; nf 11:36 Body Mass Index 22.85 (80.74 kg, 187.96 cm) nf ED Course: 11:24 Patient arrived in ED. arc 11:24 Madi Huizar MD is Private Physician. arc 11:24 Rylan Reddy MD is Attending Physician. sc 11:26 Shyay Gonsalves, SUBHASH is Primary Nurse. nf 11:27 Triage completed. nf 11:47 Arm band placed on Bed in low position Call Light in Reach HOB Elevated Side rails up nf x2. Family accompanied patient. 11:48 Maintain field IV. Dressing intact. Site clean & dry. Gauge & site: 20# right AC. nf 11:48 Valuables Remains with patient Adult w/ patient. Pulse Ox - RN Monitoring Only NIBP On nf - RN Monitoring Only. Door closed. Noise minimized. Lights dimmed. Moved to private room. Verbal reassurance given. Warm blanket given. Pillow given. 12:16 Madi Huizar MD is Referral Physician. sc 12:44 EKG done. (by ED staff). Reviewed by Rylan Reddy MD. nf 12:52 EKG attached nf 14:07 Assisted to bathroom. unable to void, DrChew aware. nf 14:51 Assisted to bathroom. nf Administered Medications: 11:42 Drug: NS 0.9% 500 ml; Route: IV; Rate: bolus; Site: right antecubital; nf 12:52 Follow up: IV Status: Completed infusion; IV Intake: 1000ml nf 12:20 Drug: D50W 50 ml; Route: IVP; Site: right antecubital; nf 12:53 Follow up: Response: No adverse reaction nf 12:21 Drug: Insulin Regular Human 5 units; Route: IVP; Site: right antecubital; nf 12:53 Follow up: Response: No adverse reaction nf 12:52 Drug: NS 0.9% 1000 ml; Route: IV; Rate: bolus; Site: right antecubital; nf 13:33 Follow up: IV Status: Completed infusion; IV Intake: 500ml nf 14:10 Drug: NS 0.9% 500 ml; Route: IV; Rate: bolus; Site: right antecubital; nf 14:51 Follow up: IV Status: Completed infusion; IV Intake: 500ml nf Point of Care Testing: Urine Dip: 14:59 pH: 5.0; ; Specific [place]: 1.015; Ketones: Negative; Glucose: Positive; Protein: nf Positive (+); Leukocytes: Negative; Nitrite: Negative ; Blood: Hemolyzed Trace; Bilirubin: Negative ; Urobilinogen: Normal Intake: 12:52 IV: 1000ml; Total: 1000ml. nf 13:33 IV: 500ml; Total: 1500ml. nf 14:51 IV: 500ml; Total: 2000ml. nf 15:10 PO: 120ml (Water); Total: 2120ml. nf Output: 15:10 Urine: 1ml (Voided); Total: 1ml. nf Outcome: 12:17 Discharge ordered by . [place] 15:10 Discharged to home via wheelchair, with family, with significant other. nf 15:10 Condition: improved 15:10 Discharge Assessment: Patient awake, alert and oriented x 3. No cognitive and/or functional deficits noted. Patient verbalized understanding of disposition instructions. 15:10 Discharge instructions given to patient, family, Instructed on discharge instructions, Demonstrated understanding of instructions, Prescriptions given X 1, outpatient lab tests to be done Friday 15:10 IV D/[place] 06/03 11:26 Discharge F/U Call: Unable to reach: no answer st 11:26 Discharge F/U Call: Spoke with: patient. other: Name: pt is feeling much better st today. Have you made a f/u appointment? yes Signatures: Silvana Parsons RN Jair Caile, SUBHASH RN Rylan Yu MD MD sc Barry, Jessi, Reg Reg arc
== END 2016-06-02 15:19 | disposition home or self-care (01) ==
LOC: ER 11:23
DX: N17.9 Acute kidney failure, unspecified (principal); E87.5 Hyperkalemia; D64.9 Anemia, unspecified; R11.0 Nausea; R53.1 Weakness; R53.83 Other fatigue; E87.1 Hypo-osmolality and hyponatremia; E83.51 Hypocalcemia; E86.0 Dehydration; C90.00 Multiple myeloma not having achieved remission; E11.9 Type 2 diabetes mellitus without complications; Z79.899 Other long term (current) drug therapy; Z79.82 Long term (current) use of aspirin; Z74.3 Need for continuous supervision
CPT/HCPCS: 80048; 85025; 93005; 96361; 96374; 96375; 99283; 99284; A0425; A0429; J1815; J7030; J7040